=== PATIENT | male | born 1955 | race Caucasian/White ===

== ENCOUNTER 2022-01-07 10:59 | Outpatient (CLI) | payer OTHER | END 2022-01-07 11:00 | disposition home or self-care (01) | LOC: BURRAD 10:59 | PROVIDERS: ATTEND Family Medicine | DX: M79.671 Pain in right foot (principal) ==

== ENCOUNTER 2022-05-18 11:36 | Outpatient (CLI) | payer MEDICARE | END 2022-05-18 11:37 | disposition home or self-care (01) | LOC: BURRAD 11:36 | PROVIDERS: ATTEND Family Medicine | DX: J98.01 Acute bronchospasm (principal); J18.0 Bronchopneumonia, unspecified organism | CPT/HCPCS: 71046 ==